=== PATIENT | female | born 2005 ===

== ENCOUNTER 2025-03-13 15:31 | Outpatient (CLI) | payer MEDICAID, OTHER | END 2025-03-13 15:32 | disposition home or self-care (01) | LOC: ULT 15:31 | PROVIDERS: ATTEND Family Medicine | DX: O09.892 Supervision of other high risk pregnancies, second trimester (principal); O32.1XX0 Maternal care for breech presentation, not applicable or unspecified; Z3A.19 19 weeks gestation of pregnancy | CPT/HCPCS: 76805 ==